=== PATIENT | male | born 1950 | race Caucasian/White ===

== ENCOUNTER → 2019-10-23 | Outpatient (CLI) | payer MEDICARE ==
[~2019-10-23] MED LIST: ACET325 PO; ASPI81EC PO; CLOP75 PO; Isosorbide Mono60 MG PO; KETO10 PO; KRILL OIL 1,001 EAC1 PO; LISI5 PO; LOVA20 PO; METO25ER PO; Multiple Vitam1 EAC1 PO; OXYACE5T PO; REPATHA SU140 MG/1 M SQ; TRAM50 PO; TRAZ100 PO; TRAZ50 PO; Zofran Odt4 MG SL
== END | disposition home or self-care (01) ==
LOC: LAB SHORT 10:00 → LAB UCHC 10:00
DX: L02.01 Cutaneous abscess of face (principal)
CPT/HCPCS: 87070; 87077; 87147; 87186; 87205

== ENCOUNTER 2020-07-17 13:35 | Inpatient (IN) | payer MEDICARE ==
[~2020-07-17] VITALS: Ht 180.3 cm; Wt 115.6 kg
[~2020-07-17 13:35] MED LIST changes: -ASPI81EC PO; +Aspirin EC81 MG PO
[2020-07-17 13:57] LABS: BASOPHILS ABSOLUTE AUTO 0.02 K/mm3 (0.00-0.23); BASOPHILS PERCENT AUTO 0 % (0-2); EOSINOPHILS ABSOLUTE AUTO 0.22 K/mm3 (0.00-0.68); EOSINOPHILS PERCENT AUTO 3 % (0-6); Hematocrit 40.8 % (37.0-53.0); Hemoglobin 13.8 g/dL (13.5-17.5); IMMATURE GRAN ABSOLUTE AUTO 0.02 K/mm3 (0.00-0.10); IMMATURE GRAN PERCENT AUTO 0 % (0-1); LYMPHOCYTES ABSOLUTE AUTO 2.31 K/mm3 (0.84-5.20); LYMPHOCYTES PERCENT AUTO 31 % (21-46); MONOCYTES PERCENT AUTO 7 % (4-13); Mean Corpuscular HGB 32.9 pg (26.0-34.0); Mean Corpuscular HGB Conc 33.8 g/dL (31.5-36.5); Mean Corpuscular Volume 97 fL (80-100); Mean Platelet Volume 10.8 fL (9.1-12.4); NEUTROPHILS PERCENT AUTO 59 % (41-73); Platelet Count 242 K/mm3 (150-400); RDW Coefficient Variation 12.8 % (11.7-14.2); RDW Standard Deviation 45.4 fL (35.1-46.3); White Blood Cell Count 7.47 K/mm3 (4.00-11.30)
[2020-07-17 14:27] LABS: Alanine Aminotransfer (ALT/SGP 20 U/L (12-78); Albumin, Blood 3.8 g/dL (3.4-5.0); Albumin/Globulin Ratio 1.1 (0.8-1.8); Alk Phos 72 U/L (50-136); Anion Gap 5 mmol/L (6-16); Aspartate Aminotrans (AST/SGOT 15 U/L (12-37); Bilirubin, Total 0.6 mg/dL (0.1-1.0); Blood Urea Nitrogen 13 mg/dL (8-24); CO2, Blood 27 mmol/L (21-32); Calcium, Blood 8.8 mg/dL (8.5-10.1); Chloride, Blood 105 mmol/L (98-108); Globulin, Blood 3.6 g/dL (2.2-4.0); Glomerular Filtration Rate >60 (60-); Glucose, Blood 166 mg/dL (70-99); Sodium, Blood 137 mmol/L (136-145); Total Protein, Blood 7.4 g/dL (6.4-8.2); Troponin I <0.015 ng/mL (0.000-0.040)
[2020-07-17] MEDS ORDERED: TRAZ100 PO (16:16)
[2020-07-17] MEDS ORDERED: ASPI81CH PO (18:04)
--- NOTE | 2020-07-17 18:39 | NUR ---
SHIFT SUMMARY PT ADMITTED THIS JESSICA AROUND 1520 FROM ER. PT TREATED FOR CHEST PAIN IN ER AND DENIES CHEST PAIN UPON ARRIVAL TO FLOOR. PT STATES HE FEELS SLIGHLTY NAUSEATED BUT FEELS THIS IS DUE TO HEARTBURN. PT IS AMBULATORY. PT C/O HEADACHE. PT HX AND ADMIT SCREENING COMPLETED. PT HAD A CHEST X-RAY IN ER AND AN ABD ULTRASOUND ON THE UNIT. PT IS ORIENTED TO ROOM AND CALL LIGHT. PT IS IN BED, CALL LIGHT IN REACH, BED IN LOW POSITION.
--- NOTE | 2020-07-17 19:05 | NUR ---
ASSUMED CARE RECEIVED REPORT FROM CHAN NIEVES. ASSUMED CARE OF PT. RESTING COMFORTABLY AT THIS TIME, NO S/S ACUTE DISTRESS NOTED. RESPS E/U. DENIES CP, PRESSURE, SOB. CALL LIGHT, POSSESSIONS IN REACH. WILL CONTINUE TO MONITOR.
--- NOTE | 2020-07-17 20:30 | NUR ---
PT OFF FLOOR FOR CT SCAN. TRANSPORTED VIA W/C.
[2020-07-17 20:47] LABS: CHOL/HDL RATIO 7.3; Cholesterol 197 mg/dL (50-200); HDL Cholesterol 27 mg/dL (>39); LDL/HDL RATIO 4.4; Low Density Lipoprotein Chol 119 mg/dL (0-110); Triglycerides 257 mg/dL (30-160); Very Low Density Lipoprot Chol 51 mg/dL (6-32)
--- NOTE | 2020-07-17 21:00 | NUR ---
PT ARRIVED BACK TO FLOOR FROM CT SCAN VIA W/C. NO S/S DISTRESS NOTED, TOLERATED WELL. WILL MONITOR AND PROVIDE CARE NEEDED.
--- NOTE | 2020-07-18 06:15 | NUR ---
SHIFT SUMMARY PT RESTING COMFORTABLY, NO S/S ACUTE DISTRESS NOTED. PT REPORTS CHEST PRESSURE THATS WORSE ON EXERTION, STATES THAT THIS HAS BEEN HIS "NORMAL" SINCE HE STARTED HAVING BRADYCARDIA, ALSO REPORTING DIZZINESS AND "HAVING TO HANG ONTO SCRUGGS AND DOOR HANDLES WHEN WALKING." CHEST PRESSURE IMPROVING WITH REST. PCU SUPERVISOR METAL FABRICATING REPORTING SINUS BRADYCARDIA HR OF 50. REMINDED PT TO USE CALL LIGHT PRIOR TO AMBULATION IF HE FEELS DIZZY AND FAINT SO THAT STAFF CAN ASSIST HIM. THIS RN EXPLAINING TO PT S/S SYMPTOMATIC BRADYCARDIA, PT INDICATES UNDERSTANDING, STATING "THIS EXPLAINS WHY I'VE HAD THESE SYMPTOMS ALL ALONG. IT MAKES SENSE." DENIES FURTHER NEEDS AT THIS TIME. CALL LIGHT, POSSESSIONS IN REACH, WILL CONTINUE TO PROVIDE CARE NEEDED UNTIL DAY RN ASSUMES CARE.
--- NOTE | 2020-07-18 18:53 | NUR ---
SHIFT SUMMARY PT AWAKE AT START OF SHIFT, TEXTING ON CELL PHONE. PT ADMITTED FOR C/O CP. PT REPORTED HAVING SOME CHEST PRESSURE, RADIATING TO L ARM WITH "EPIGASTRIC BUBBLES". CE'S NEG. DR VIGIL IN TO SEE PT. NEW ORDERS PLACED FOR ONE DAY STRESS TEST. NUCULAR MEDICINE CALLED TO REPORT PT'S WT TO MUCH FOR ONE DAY STUDY. PT'S DIET CHANGED PER NUC MED. PT COMPLETED FIRST PART OF STRESS TEST. TO BE NPO AFTER MN FOR 2ND PART AT 0800. IN TO VISIT THIS AFTERNOON. NO C/O. PT AMBULATED IN HALLS SEVERAL TIMES TODAY. INDEPENDENT IN RM. CALL LT IN REACH.
--- NOTE | 2020-07-19 02:49 | NUR ---
SHIFT SUMMARY ALERT AND ORIENTED. HAS BEEN ERSTING QUIETLY SINCE HS AFTER RECEIVING SLEEP MED. REMAINS NPO SINCE 0000 FOR CARDIAC STRESS TEST LATER TODAY. CALL LIGHT IN REACH. NO C/O VOICED. VSS
--- NOTE | 2020-07-19 18:23 | NUR ---
SHIFT SUMMARY PT A/O X4 AND IND. PT UNDERWENT THE SECOND PORTION OF HIS STRESS TEST TODAY. THE PHYSICIAN DECIDED TO KEEP THE PT ANOTHER NIGHT. PT ENCOURAGED TO AMBULATE IN ORDER TO SEE IF HE HAS CP. NPO AT MIDNIGHT DUE TO POSSIBLE ANGIOGRAM. IF THE PT CONTINUES TO NOT HAVE CP THEN HE WILL FOLLOW UP OUT PATIENT. VSS. NORMAL SINUE ON TELE. WILL CONTINUE TO MONITOR.
--- NOTE | 2020-07-20 03:43 | NUR ---
SHIFT SUMMARY HAS BEEN RESTING QUIETLY WITH FEW INTERRUPTIONS THIS SHIFT. CALL LIGHT IN REACH. VSS
[2020-07-20] MEDS ORDERED: Nitrostat0.3 MG SL (12:04)
[2020-07-20] MEDS ORDERED: OMEP20ER PO (12:05)
[2020-07-20] MEDS ORDERED: Isosorbide Mono30 MG PO (12:06)
--- NOTE | 2020-07-20 13:12 | NUR ---
PT DISCHARGED AT APPROX 1245. DISCONTINUED FROM TELE AND CLEAT LAYER WAS NOTIFIED. IV REMOVED WITH NO SIGNS OF INFECTION NOTED. PT AND PRESENT FOR DISCHARGE INSCTRUCTION. TAUGHT PT AND ABOUT THE USE OF NITROGLYCERIN AND PROVIDED EDUCATION IN WRITTEN FORMAT. PT WALKED OUT WITH AND LEFT BY PRIVATE VEHICLE.
== END 2020-07-20 12:23 | disposition home or self-care (01) | DRG 303 ==
LOC: ER 13:35 → MEDS 13:36
PROVIDERS: Emergency Medicine; ADMIT Family Medicine
DX: I99.8 Other disorder of circulatory system (principal); R00.1 Bradycardia, unspecified; I10 Essential (primary) hypertension; I25.10 Atherosclerotic heart disease of native coronary artery without angina pectoris; Z95.1 Presence of aortocoronary bypass graft; K21.9 Gastro-esophageal reflux disease without esophagitis; Z86.718 Personal history of other venous thrombosis and embolism; R42 Dizziness and giddiness; E78.5 Hyperlipidemia, unspecified
CPT/HCPCS: 36415; 70496; 70498; 71046; 76705; 78452; 80053; 80061; 83690; 83880; 84484; 85025; 93005; 93010; 93017; 96372; 96374; 96375; 99285-25; A9270; A9270-GY; A9500; G0378; J0706; J1650; J2405; J2785; Q9967

== ENCOUNTER → 2020-08-25 | Outpatient (CLI) | payer MEDICARE ==
[~2020-08-25] MED LIST changes: +ASPI81CH PO; +Isosorbide Mono30 MG PO; +Nitrostat0.3 MG SL; +OMEP20ER PO
== END | disposition home or self-care (01) ==
LOC: LAB 19:24 → LAB SHORT 19:24
DX: L08.9 Local infection of the skin and subcutaneous tissue, unspecified (principal)
CPT/HCPCS: 87070; 87077; 87147; 87186; 87205

== ENCOUNTER 2022-02-28 19:44 | Inpatient (IN) | payer MEDICARE ==
[~2022-02-28] VITALS: Ht 182.9 cm; Wt 110.1 kg
[2022-02-28 20:21] LABS: BASOPHILS ABSOLUTE AUTO 0.03 K/mm3 (0.00-0.23); BASOPHILS PERCENT AUTO 0 % (0-2); EOSINOPHILS ABSOLUTE AUTO 0.26 K/mm3 (0.00-0.68); EOSINOPHILS PERCENT AUTO 3 % (0-6); Hematocrit 40.1 % (37.0-53.0); Hemoglobin 13.5 g/dL (13.5-17.5); IMMATURE GRAN ABSOLUTE AUTO 0.02 K/mm3 (0.00-0.10); IMMATURE GRAN PERCENT AUTO 0 % (0-1); LYMPHOCYTES ABSOLUTE AUTO 2.18 K/mm3 (0.84-5.20); LYMPHOCYTES PERCENT AUTO 26 % (21-46); MONOCYTES ABSOLUTE AUTO 0.57 K/mm3 (0.16-1.47); MONOCYTES PERCENT AUTO 7 % (4-13); Mean Corpuscular HGB 32.4 pg (26.0-34.0); Mean Corpuscular HGB Conc 33.7 g/dL (31.5-36.5); Mean Corpuscular Volume 96 fL (80-100); Mean Platelet Volume 10.5 fL (9.1-12.4); NEUTROPHILS ABSOLUTE AUTO 5.46 K/mm3 (1.96-9.15); NEUTROPHILS PERCENT AUTO 64 % (41-73); Platelet Count 234 K/mm3 (150-400); RDW Coefficient Variation 12.5 % (11.7-14.2); RDW Standard Deviation 44.2 fL (35.1-46.3); Red Blood Cell Count 4.17 M/mm3 (4.30-5.90); White Blood Cell Count 8.52 K/mm3 (4.00-11.30)
[2022-02-28 20:49] LABS: Alanine Aminotransfer (ALT/SGP 26 U/L (12-78); Albumin, Blood 3.5 g/dL (3.4-5.0); Alk Phos 71 U/L (50-136); Anion Gap 7 mmol/L (6-16); Aspartate Aminotrans (AST/SGOT 15 U/L (12-37); Bilirubin, Total 0.3 mg/dL (0.1-1.0); Blood Urea Nitrogen 14 mg/dL (8-24); Bun/Creatinine Ratio 19.2 (12.0-20.0); CO2, Blood 26 mmol/L (21-32); Calcium, Blood 9.1 mg/dL (8.5-10.1); Chloride, Blood 103 mmol/L (98-108); Creatinine, Blood 0.73 mg/dL (0.60-1.20); Globulin, Blood 3.4 g/dL (2.2-4.0); Glomerular Filtration Rate >60 (60-); Glucose, Blood 216 mg/dL (70-99); Potassium, Blood 3.9 mmol/L (3.5-5.5); Sodium, Blood 136 mmol/L (136-145); Total Protein, Blood 6.9 g/dL (6.4-8.2)
[2022-02-28 22:09] LABS: Anti-Xa UFH, PHA Monitoring <0.10 IU/mL; International Normalized Ratio 0.97; Prothrombin Time Results 10.2 Sec (9.7-11.5)
--- NOTE | 2022-02-28 23:36 | NUR ---
2320 recieved report from ED RN, pt to go into room [id number] recieved pt via bed CHAN chang
[2022-03-01 03:57] LABS: BASOPHILS ABSOLUTE AUTO 0.03 K/mm3 (0.00-0.23); BASOPHILS PERCENT AUTO 0 % (0-2); EOSINOPHILS ABSOLUTE AUTO 0.36 K/mm3 (0.00-0.68); EOSINOPHILS PERCENT AUTO 5 % (0-6); Hematocrit 36.4 % (37.0-53.0); Hemoglobin 12.5 g/dL (13.5-17.5); IMMATURE GRAN ABSOLUTE AUTO 0.02 K/mm3 (0.00-0.10); IMMATURE GRAN PERCENT AUTO 0 % (0-1); LYMPHOCYTES ABSOLUTE AUTO 2.58 K/mm3 (0.84-5.20); LYMPHOCYTES PERCENT AUTO 37 % (21-46); MONOCYTES ABSOLUTE AUTO 0.56 K/mm3 (0.16-1.47); MONOCYTES PERCENT AUTO 8 % (4-13); Mean Corpuscular HGB 33.2 pg (26.0-34.0); Mean Corpuscular HGB Conc 34.3 g/dL (31.5-36.5); Mean Corpuscular Volume 97 fL (80-100); Mean Platelet Volume 10.2 fL (9.1-12.4); NEUTROPHILS ABSOLUTE AUTO 3.41 K/mm3 (1.96-9.15); NEUTROPHILS PERCENT AUTO 49 % (41-73); Platelet Count 205 K/mm3 (150-400); RDW Coefficient Variation 12.5 % (11.7-14.2); RDW Standard Deviation 44.4 fL (35.1-46.3); Red Blood Cell Count 3.77 M/mm3 (4.30-5.90); White Blood Cell Count 6.96 K/mm3 (4.00-11.30)
[2022-03-01 04:16] LABS: Alanine Aminotransfer (ALT/SGP 23 U/L (12-78); Albumin, Blood 3.2 g/dL (3.4-5.0); Albumin/Globulin Ratio 1.1 (0.8-1.8); Alk Phos 58 U/L (50-136); Anion Gap 5 mmol/L (6-16); Aspartate Aminotrans (AST/SGOT 18 U/L (12-37); Bilirubin, Total 0.5 mg/dL (0.1-1.0); Blood Urea Nitrogen 14 mg/dL (8-24); Bun/Creatinine Ratio 20.3 (12.0-20.0); CO2, Blood 27 mmol/L (21-32); Chloride, Blood 106 mmol/L (98-108); Cholesterol 174 mg/dL (50-200); Creatinine, Blood 0.69 mg/dL (0.60-1.20); Globulin, Blood 2.9 g/dL (2.2-4.0); Glomerular Filtration Rate >60 (60-); Glucose, Blood 164 mg/dL (70-99); HDL Cholesterol 29 mg/dL (>39); LDL/HDL RATIO 3.3; Low Density Lipoprotein Chol 95 mg/dL (0-110); Potassium, Blood 4.1 mmol/L (3.5-5.5); Sodium, Blood 138 mmol/L (136-145); Total Protein, Blood 6.1 g/dL (6.4-8.2); Triglycerides 251 mg/dL (30-160); Very Low Density Lipoprot Chol 50 mg/dL (6-32)
--- NOTE | 2022-03-01 05:01 | NUR ---
OVERNIGHT WITHOUT ISSUES, 2MG MORPHINE GIVEN ON ADMIT ~0000 FOR 4/10 CP. CURRENTLY DENIES CP VSS, AFEBRILE, ROOM AIR, HEP GTT INFUSING @15U/KG/HR OR 27.9ML, TROPS TRENDING UP, WILL CONTINUE TO MONITOR CHAN PERKINS
--- NOTE | 2022-03-01 10:00 | NUR ---
Echocardiogram completed.
--- NOTE | 2022-03-01 11:38 | NUR ---
PT TO [facility] FOR ANGIOGRAM
--- NOTE | 2022-03-01 15:38 | NUR ---
UPDATE/TRANSFER: PT CONTINUES IN [facility] AT THIS TIME, BUT WILL BE TRANSFERING TO ICU UPON DEPARTURE FROM HEART CENTER. REPORT HAS BEEN GIVEN TO CHAN MONTANA IN ICU TO RECEIVE PT.
--- NOTE | 2022-03-01 16:30 | NUR ---
INITIAL ASSESSMENT PATIENT ARRIVED FROM COMPUTATIONAL SCIENCES PROFESSOR AROUND 1550. PATIENT ALERT AND ORIENTED X 4, PLEASANT AND COOPERATIVE. PATIENT AFEBRILE. PATIENT STATES HE HAS 2/10 CHEST AND L SHOULDER PRESSURE BUT THAT IT IS MANAGEABLE WITHOUT PAIN MEDICATION AT THIS TIME. PATIENT INDEPENDENT AT HOME. PATIENT HAS ACTIVITY RESTRICTIONS IN PLACE AT THIS TIME FOR SHEATH IN R FEM. PATIENT SATTING 90% AND GREATER ON RA. PATIENT IN FIRST DEGREE BLOCK, HR 60S TO 70S. SBP 1-TEENS TO 130S. GI AND WNL. SHEATH AND A LINE TO R FEM- NO BLEEDING, BRUISING, OR HEMATOMA NOTED. SKIN PALE. HEPARIN STARTED AT 15 UNITS/ KG/ HOUR. BED LOW, CALL LIGHT IN REACH. PATIENT ORIENTED TO UNIT, ROOM AND CALL LIGHT. PATIENT STATES HE UNDERSTANDS ACTIVITY RESTRICTIONS RELATED TO SHEATH. WILL CONTINUE TO MONITOR.
--- NOTE | 2022-03-01 19:24 | NUR ---
SHIFT SUMMARY PATIENT REMAINED ALERT AND ORIENTED. PATIENT STATES HE IS TIRED AFTER THE LONG DAY. PATIENT HAS BEEN DOING WELL WITH SHEATH ACTIVITY RESTRICTIONS. NO COMPLAINTS OF CHEST PAIN OR PRESSURE AFTER INITIAL COMPLAINT WHEN FIRST ARRIVED IN UNIT. PATIENT REMAINS ON RA. PATIENT HR 60S TO 70S. SBP LOW 100S TO 130S. NO BM. PATIENT STARTED ON CARDIAC DIET. 1725 MLS OF URINE OUTPUT THIS SHIFT. NO CHANGES TO SKIN OR SHEATH NOTED. HEPARIN REMAINS AT 15 UNITS/ KG/ HOUR. REPORT HAS BEEN GIVEN TO ASSUMING PANELBEATER NURSE.
--- NOTE | 2022-03-01 19:50 | NUR ---
ASSESSMENT/ASSUMED CARE PT AWAKE LYING SUPINE IN BED. ATE 100% DINNER. REPORTS PAIN 5/10 HEADACHE, COMES AND GOES SINCE RECEIVING NTG. REFUSES PAIN MED AT THIS TIME. HEART RATE REGULAR. DENIES CHEST PAIN OR PRESSURE. HEART RATE 70'S. BP STABLE. SHEATH TO RITH GROIN WITH PRESSURE BAG. DRSG INTACT. SOFT TO PALPATION WITH SLIGHT TENDERNESS AT SITE. NO BRUSING OR BLEEDING NOTED. PEDAL PULSES STRONG. DENIES NUMBNESS OR TINGLING. TRACE EDEMA NOTED TO BILAT LOWER EXT. LUNGS CLEAR ON ROOMAIR. RESP EVEN AND NONLABORED. DENIES SOB OR COUGH. BT+ABD SOFT AND NONTENDER. DENIES N/V. VOIDING CLEAR YELLOW URINE VIA URINAL. IV RIGHT WRIST 20G WITH HEPARIN INFUSING AT 15 UNITS/KG/MIN. NEXT LAB DRAW AT 2200. PT BOOSTED UP IN BED.
--- NOTE | 2022-03-01 21:43 | NUR ---
PT C/O DIFFICULTY BREATHING DUE TO DRY NOSE. CALL TO HOSPITALIST FOR SALINE NASAL SPRAY.
--- NOTE | 2022-03-02 02:33 | NUR ---
PAIN PT C/O HEADACHE 4/10 MED WITH TYLENOL. REPOSITIONED SUPINE BUT TO THE RIGHT. DENIES CHEST PAIN OR PRESSURE. RIGHT GROIN STABLE.
[2022-03-02 04:23] LABS: Hematocrit 34.9 % (37.0-53.0); Mean Platelet Volume 10.6 fL (9.1-12.4); Platelet Count 239 K/mm3 (150-400)
--- NOTE | 2022-03-02 05:46 | NUR ---
SHIFT SUMMARY PT RESTING QUIETLY. MED WITH TYLENOL ONCE DURING THE NIGHT WITH GOOD RESULTS FOR A HEADACHE. USING SALINE NASAL SPRAY FOR DRY NOSE. PT REMAINED SUPINE BUT LOG ROLLED SIDE TO SIDE WHILE KEEPING RIGHT LEG STRAIGHT. RIGHT GROIN SHEATH STABLE. NO BLEEDING OR HEMATOMA NOTED. HEPARIN GTT AT 14 UNITS/KG/HR WILL RECHECK ANTI XA AT 1200. HEART RATE REGULAR 60-70'S. BP STABLE. DENIES CHEST PAIN OR PRESSURE DURING THE NIGHT. EKG DONE THIS AM. REPORT TO ON COMING NURSE
--- NOTE | 2022-03-02 08:00 | NUR ---
INITIAL ASSESSMENT PATIENT ALERT AND ORIENTED X 4, AFEBRILE. PATIENT INDEPENDENT AT BASELINE BUT ON ACTIVITY RESTRICTION BECAUSE OF SHEATH IN R FEM. PATIENT DENIES ANY PAIN, INCLUDING CHEST PAIN OR PRESSURE. PATIENT SATTING 90% AND GREATER ON RA. PATIENT IN SR, HR IN THE 70S. SBP IN THE 120S. TRACE EDEMA NOTED TO BLES. PULSES STRONG IN L FOOT, FAINT IN R FOOT. GI AND WNL. R FEM SHEATH WNL- NO BLEEDING, BRUISING, OR HEMATOMA NOTED. SKIN PALE. HEPARIN INFUSING AT 14 UNITS/ KG/ HOUR. BED LOW, CALL LIGHT IN REACH. WILL CONTINUE TO MONITOR PATIENT FREQUENTLY THROUGHOUT SHIFT.
[2022-03-02] MEDS ORDERED: METO25ER PO (10:26)
--- NOTE | 2022-03-02 10:45 | NUR ---
DR. LORENZO CALLED AND UPDATED ON PATIENT STATUS. INFORMED THAT PULSES 1+ IN R FOOT AND 2+ IN LEFT FOOT. INFORMED THAT PATIENT DENIES ANY CHEST PAIN OR PRESSURE. ORDERS RECEIVED.
--- NOTE | 2022-03-02 12:00 | NUR ---
PATIENT AFEBRILE. HR 60S TO 70S. SBP LOW 100S TO 120S. NO ACUTE CHANGES TO NOTE ON. WILL CONTINUE TO MONITOR.
--- NOTE | 2022-03-02 16:00 | NUR ---
PATIENT AFEBRILE. HR 60S TO 70S. SBP LOW 100S TO 1-TEENS. SHEATH PULLED EARLIER. SITE REMAINS WITH SMALL BRUISE. NO BLEEDING OR HEMATOMA NOTED. NO OTHER ACUTE CHANGES TO NOTE ON AT THIS TIME. WILL CONTINUE TO MONITOR.
--- NOTE | 2022-03-02 18:14 | NUR ---
SHIFT SUMMARY PATIENT REMAINED ALERT AND ORIENTED X 4, AFEBRILE. PATIENT HAD NO COMPLAINTS OF PAIN THROUGHOUT SHIFT. PATIENT REMAINED SATTING 90% AND GREATER ON RA. PATIENT REMAINED IN SR, HR 60S TO 70S. SBP LOW 100S TO 120S. NO BM THIS SHIFT. PATIENT TOLERATED CARDIAC DIET WELL. REMAINED WNL; 2000 MLS URINE OUT THIS SHIFT. HEPARIN DRIP STOPPED AND SHEATH REMOVED THIS SHIFT. R FEM SITE HEMOSTASIS ACHIEVED AT 1315. SMALL BRUISE AT R FEM; NO BLEEDING OR HEMATOMA NOTED. PATIENT REFUSED BED BATH THIS SHIFT. PATIENT HAS NO COMPLAINTS AT THIS TIME. BED LOW, CALL LIGHT IN REACH. REPORT WILL BE GIVEN TO ASSUMING LINE CREW SUPERVISOR NURSE SHORTLY.
--- NOTE | 2022-03-03 03:16 | NUR ---
ASSUMED CARE OF PT ON 03/02 AT 1900, RECEIVED REPORT FROM CHAN MONTANA. PT IS A/O X4, EXPRESSES NEEDS WELL AND USES CALL LIGHT APPROPRIATELY. AFEBRILE. ON ROOM AIR, SPO2 >98%, LUNGS CLEAR THROUGHOUT. HR IS SR WITH RATE IN 60-70'S, BP NORMOTENSIVE. RIGHT GROIN SITE SHOWS NO BLEEDING OR PRESENCE OF HEMATOMA THROUGHOUT SHIFT, SLIGHT BRUISING AND TENDER. PULSES IN BUE AND BLE ARE STRONG, +2. HE HAS BEEN ABLE TO MOVE INDEPENDENTLY IN ROOM WITH STEADY GAIT. USING URINAL. HE REPORTED A SLIGHT HEADACHE AT THE BEGINNING OF SHIFT, MEDICATED WITH TYLENOL PER EMAR. HE HAS A PERIPHERAL IV IN RIGHT WRIST, SALINE LOCKED. 0255: REPORT GIVEN TO CHAN CANTU. PT TRANSFERRED TO PCU BY WHEELCHAIR AT 0323.
[2022-03-03 04:20] LABS: Anion Gap 5 mmol/L (6-16); Blood Urea Nitrogen 14 mg/dL (8-24); Bun/Creatinine Ratio 18.8 (12.0-20.0); CO2, Blood 29 mmol/L (21-32); Calcium, Blood 8.7 mg/dL (8.5-10.1); Chloride, Blood 104 mmol/L (98-108); Creatinine, Blood 0.75 mg/dL (0.60-1.20); Glomerular Filtration Rate >60 (60-); Glucose, Blood 145 mg/dL (70-99); Sodium, Blood 138 mmol/L (136-145)
--- NOTE | 2022-03-03 05:43 | NUR ---
PAYABLE REPRESENTATIVE SUMMARY PT TRANSFERED TO PCU AT 0325 AND WAS ABLE TO TRANSFER HIMSELF TO PCU BED. PT DENYING ANY CP OR PRESSURE THIS SHIFT. BP WNL AND STABLE. TELE SHOWING SR IN THE 60'S. R GROIN SITE SHOWING NO S/S OF BLEEDING OR HEMATOMA. PT RESTING IN BED W CALL LIGHT IN REACH, WILL REPORT TO ONCOMING RN.
[2022-03-03] MEDS ORDERED: ASPI81CH PO (11:25)
[2022-03-03] MEDS ORDERED: CLOP75 PO (11:25)
== END 2022-03-03 11:45 | disposition home or self-care (01) | DRG 247 ==
LOC: ER 19:44 → ICUE 23:18 → PCU 23:18 → ICUE 03-01 15:42 → PCU 03-03 03:24
PROVIDERS: Emergency Medicine; Internal Medicine; Internal Medicine Interventional Cardiology; Physician Assistant; ADMIT Internal Medicine
PROC: 027036Z Dilation of Coronary Artery, One Artery with Three Drug-eluting Intraluminal Devices, Percutaneous Approach (ICD-10-PCS; principal; 2022-03-01)
PROC: 4A023N7 Measurement of Cardiac Sampling and Pressure, Left Heart, Percutaneous Approach (ICD-10-PCS; 2022-03-01)
PROC: B2111ZZ Fluoroscopy of Multiple Coronary Arteries using Low Osmolar Contrast (ICD-10-PCS; 2022-03-01)
PROC: B2181ZZ Fluoroscopy of Left Internal Mammary Bypass Graft using Low Osmolar Contrast (ICD-10-PCS; 2022-03-01)
PROC: B2151ZZ Fluoroscopy of Left Heart using Low Osmolar Contrast (ICD-10-PCS; 2022-03-01)
PROC: B21F1ZZ Fluoroscopy of Other Bypass Graft using Low Osmolar Contrast (ICD-10-PCS; 2022-03-01)
DX: I21.4 Non-ST elevation (NSTEMI) myocardial infarction (principal); I10 Essential (primary) hypertension; E78.5 Hyperlipidemia, unspecified; Z66 Do not resuscitate; E11.65 Type 2 diabetes mellitus with hyperglycemia; K21.9 Gastro-esophageal reflux disease without esophagitis; R77.8 Other specified abnormalities of plasma proteins; Z88.5 Allergy status to narcotic agent; Z79.82 Long term (current) use of aspirin; Z79.899 Other long term (current) drug therapy; Z95.1 Presence of aortocoronary bypass graft; Z87.891 Personal history of nicotine dependence; Z79.811 Long term (current) use of aromatase inhibitors; Z88.8 Allergy status to other drugs, medicaments and biological substances; Z82.49 Family history of ischemic heart disease and other diseases of the circulatory system; Z83.3 Family history of diabetes mellitus; Z98.890 Other specified postprocedural states; Z86.718 Personal history of other venous thrombosis and embolism; I65.02 Occlusion and stenosis of left vertebral artery; I25.710 Atherosclerosis of autologous vein coronary artery bypass graft(s) with unstable angina pectoris; E78.00 Pure hypercholesterolemia, unspecified
CPT/HCPCS: 36415; 71045; 80048; 80053; 80061; 83036; 83690; 84484; 85014; 85018; 85025; 85049; 85347; 85520; 85610; 85730; 86850; 86900; 86901; 93005; 93010; 93306; 93459; 93460; 96365; 96375; 99152; 99153; 99285-25; A9270; C1725; C1769; C1874; C1884; C1887; C1894; C9113; C9604; J0360; J0461; J1644; J2250; J2270; J2370; J2405; J3010; J7030; J7040; Q9967

== ENCOUNTER 2022-03-23 11:48 | Emergency (ER) | payer MEDICARE ==
[~2022-03-23] VITALS: Ht 180.3 cm; Wt 110.2 kg
[2022-03-23 14:04] LABS: BASOPHILS ABSOLUTE AUTO 0.03 K/mm3 (0.00-0.23); BASOPHILS PERCENT AUTO 0 % (0-2); EOSINOPHILS ABSOLUTE AUTO 0.24 K/mm3 (0.00-0.68); EOSINOPHILS PERCENT AUTO 3 % (0-6); Hematocrit 43.7 % (37.0-53.0); Hemoglobin 14.8 g/dL (13.5-17.5); IMMATURE GRAN ABSOLUTE AUTO 0.02 K/mm3 (0.00-0.10); IMMATURE GRAN PERCENT AUTO 0 % (0-1); LYMPHOCYTES ABSOLUTE AUTO 2.05 K/mm3 (0.84-5.20); LYMPHOCYTES PERCENT AUTO 27 % (21-46); MONOCYTES ABSOLUTE AUTO 0.63 K/mm3 (0.16-1.47); MONOCYTES PERCENT AUTO 8 % (4-13); Mean Corpuscular HGB 32.3 pg (26.0-34.0); Mean Corpuscular HGB Conc 33.9 g/dL (31.5-36.5); Mean Corpuscular Volume 95 fL (80-100); Mean Platelet Volume 10.2 fL (9.1-12.4); NEUTROPHILS ABSOLUTE AUTO 4.62 K/mm3 (1.96-9.15); NEUTROPHILS PERCENT AUTO 61 % (41-73); Platelet Count 299 K/mm3 (150-400); RDW Coefficient Variation 12.3 % (11.7-14.2); RDW Standard Deviation 43.2 fL (35.1-46.3); Red Blood Cell Count 4.58 M/mm3 (4.30-5.90); White Blood Cell Count 7.59 K/mm3 (4.00-11.30)
[2022-03-23 14:22] LABS: Albumin/Globulin Ratio 1.1 (0.8-1.8); Bilirubin, Total 0.5 mg/dL (0.1-1.0); Bun/Creatinine Ratio 23.1 (12.0-20.0); Calcium, Blood 9.4 mg/dL (8.5-10.1); Creatinine, Blood 0.69 mg/dL (0.60-1.20); Globulin, Blood 3.8 g/dL (2.2-4.0); Potassium, Blood 4.1 mmol/L (3.5-5.5); Total Protein, Blood 7.8 g/dL (6.4-8.2)
== END 2022-03-23 16:23 | disposition home or self-care (01) ==
LOC: ER 11:48
PROVIDERS: Physician Assistant
DX: R07.9 Chest pain, unspecified (principal); R94.31 Abnormal electrocardiogram [ECG] [EKG]; I10 Essential (primary) hypertension; K21.9 Gastro-esophageal reflux disease without esophagitis; I25.10 Atherosclerotic heart disease of native coronary artery without angina pectoris; Z86.718 Personal history of other venous thrombosis and embolism; Z79.899 Other long term (current) drug therapy; Z79.82 Long term (current) use of aspirin; Z79.02 Long term (current) use of antithrombotics/antiplatelets; Z88.5 Allergy status to narcotic agent; Z95.1 Presence of aortocoronary bypass graft; Z95.5 Presence of coronary angioplasty implant and graft
CPT/HCPCS: 36415; 71046; 80053; 83690; 83880; 84484; 85025; 93005; 93010

== ENCOUNTER → 2023-10-27 | Outpatient (CLI) | payer MEDICARE | LOC: LAB SHORT 10:11 → LAB 10:11 | DX: L57.0 Actinic keratosis (principal) | CPT/HCPCS: 88305 ==